=== PATIENT | male | born 1945 | race Caucasian/White ===

== ENCOUNTER → 2023-10-29 07:37 | Outpatient (REF) | payer MEDICARE, OTHER, SELFPAY ==
[2023-10-29 09:36] LABS: Blood Urea Nitrogen 24 mg/dl (9-20); Calcium 9.3 mg/dl (8.4-10.2); Carbon Dioxide 31 mmol/L (22-30); Chloride 101 mmol/L (98-107); Glucose 111 mg/dl (70-99); Potassium 4.4 mmol/L (3.5-5.1); Sodium 137 mmol/L (135-145); eGFR > 60.00
== END ==
LOC: REG 07:37
PROVIDERS: ATTENDING PHYSICIAN Surgery; FAMILY PHYSICIAN Family Medicine
DX: Q60.0 Renal agenesis, unilateral (principal)
CPT/HCPCS: 36415; 80048

== ENCOUNTER → 2023-11-04 16:02 | Outpatient (REF) | payer MEDICARE, OTHER, SELFPAY | LOC: RAD 16:02 | PROVIDERS: ATTENDING PHYSICIAN Surgery | DX: N31.2 Flaccid neuropathic bladder, not elsewhere classified (principal) | CPT/HCPCS: 76770 ==

== ENCOUNTER → 2023-11-06 19:06 | Outpatient (REF) | payer MEDICARE, OTHER, SELFPAY ==
[2023-11-06 20:11] LABS: Urine Albumin Trace (Neg - Trace); Urine Bilirubin Negative (Negative); Urine Character Slightly Cloudy (Clear); Urine Color Yellow; Urine Glucose Negative (Negative); Urine Ketone Negative (Negative); Urine Leukocyte 2+ (Negative); Urine Nitrite Positive (Negative); Urine Occult Blood 1+ (Negative); Urine Specific Gravity 1.015 (<1.030); Urine Urobilinogen Negative (Neg - 1+)
[2023-11-06 20:24] LABS: Urine Bacteria Moderate (Negative); Urine White Cell >100 /HPF (0-5)
[2023-11-06 20:26] LABS: Urine Red Blood Cell 0-2 /HPF (0-2)
== END ==
LOC: CLAB 19:06
PROVIDERS: ATTENDING PHYSICIAN Surgery
DX: N39.0 Urinary tract infection, site not specified (principal)
CPT/HCPCS: 81003; 81015; 87077; 87086; 87186

== ENCOUNTER → 2024-02-16 07:14 | Outpatient (REF) | payer MEDICARE, OTHER, SELFPAY ==
[2024-02-16 08:16] LABS: % Basophils 0.3 % (0-2); % Eosinophils 1.1 % (0-6); % Immature Granulocytes 0.3 % (0-0.5); % Lymphocytes 38.2 % (20.5-51.1); % Neutrophils 50.1 % (42.2-75.2); Absolute Lymphocytes 1.4 10^3/uL (1.2-3.4); Absolute Monocytes 0.4 10^3/uL (0.1-0.6); Absolute Neutrophils 1.8 10^3/uL (1.4-6.5); Hematocrit 39.1 % (39.0-52.0); Hemoglobin 13.1 g/dL (13.0-18.0); Mean Corp Hgb Conc. 33.5 g/dL (33.0-37.0); Mean Corpuscular Hgb 29.8 pg (27.0-31.0); Mean Corpuscular Volume 89.1 fL (80.0-94.0); Mean Platelet Volume 9.2 fL (7.4-10.4); Nucleated Red Blood Cells % 0 % (-); Platelet Count 151 10^3/uL (130-400); Red Blood Cell Count 4.39 10^6/uL (4.70-6.10); Red Cell Dist. Width 13.6 % (11.5-14.5); White Blood Cell Count 3.6 10^3/uL (4.8-10.8)
[2024-02-16 09:09] LABS: ALT (SGPT) 18 U/L (0-50); AST (SGOT) 35 U/L (17-59); Albumin 4.2 g/dl (3.5-5.0); Alkaline Phosphatase 84 U/L (38-126); Blood Urea Nitrogen 21 mg/dl (9-20); Calcium 9.5 mg/dl (8.4-10.2); Carbon Dioxide 29 mmol/L (22-30); Chloride 103 mmol/L (98-107); Glucose 103 mg/dl (70-99); HDL Cholesterol 50 mg/dl; LDL Cholesterol, Calculated 52 mg/dl; Potassium 4.3 mmol/L (3.5-5.1); Sodium 140 mmol/L (135-145); Total Bilirubin 0.9 mg/dl (0.2-1.3); Total Cholesterol 113 mg/dl (50-199); Total Protein 7.1 g/dl (6.3-8.2); Triglyceride 56 mg/dl (10-149); Very Low Density Lipoprotein 11 mg/dl (0-30); eGFR > 60.00
[2024-02-16 09:32] LABS: PSA, Total - Diagnostic 2.84 ng/ml (0.0-4.0); TSH 2.25 uIU/ml (0.47-4.68)
== END ==
LOC: REG 07:14
PROVIDERS: ATTENDING PHYSICIAN Family Medicine
DX: R73.03 Prediabetes (principal); N40.1 Benign prostatic hyperplasia with lower urinary tract symptoms; I10 Essential (primary) hypertension
CPT/HCPCS: 36415; 80053; 80061; 83036; 84153; 84443; 85025

== ENCOUNTER → 2024-07-18 07:38 | Outpatient (REF) | payer MEDICARE, OTHER, SELFPAY | LOC: RAD 07:38 | PROVIDERS: ATTENDING PHYSICIAN Physician Assistant; FAMILY PHYSICIAN Family Medicine | DX: I72.4 Aneurysm of artery of lower extremity (principal) | CPT/HCPCS: 93922; 93925 ==

== ENCOUNTER → 2024-08-23 08:39 | Outpatient (REF) | payer MEDICARE, OTHER, SELFPAY ==
[2024-08-23 09:12] LABS: % Basophils 0.3 % (0-2); % Immature Granulocytes 0.3 % (0-0.5); % Lymphocytes 31.8 % (20.5-51.1); % Monocytes 7.8 % (1.7-9.3); % Neutrophils 58.8 % (42.2-75.2); Absolute Lymphocytes 1.3 10^3/uL (1.2-3.4); Absolute Monocytes 0.3 10^3/uL (0.1-0.6); Absolute Neutrophils 2.3 10^3/uL (1.4-6.5); Hematocrit 42.5 % (39.0-52.0); Hemoglobin 14.2 g/dL (13.0-18.0); Mean Corp Hgb Conc. 33.4 g/dL (33.0-37.0); Mean Corpuscular Hgb 30.5 pg (27.0-31.0); Mean Corpuscular Volume 91.4 fL (80.0-94.0); Mean Platelet Volume 9.4 fL (7.4-10.4); Nucleated Red Blood Cells % 0 % (-); Platelet Count 138 10^3/uL (130-400); Red Blood Cell Count 4.65 10^6/uL (4.70-6.10); Red Cell Dist. Width 12.8 % (11.5-14.5)
[2024-08-23 10:08] LABS: ALT (SGPT) 17 U/L (0-50); AST (SGOT) 29 U/L (17-59); Albumin 4.7 g/dl (3.5-5.0); Alkaline Phosphatase 69 U/L (38-126); Blood Urea Nitrogen 26 mg/dl (9-20); Calcium 9.7 mg/dl (8.4-10.2); Carbon Dioxide 31 mmol/L (22-30); Chloride 100 mmol/L (98-107); Glucose 104 mg/dl (70-99); HDL Cholesterol 65 mg/dl; LDL Cholesterol, Calculated 53 mg/dl; Potassium 4.6 mmol/L (3.5-5.1); Sodium 140 mmol/L (135-145); Total Cholesterol 128 mg/dl (50-199); Total Protein 7.5 g/dl (6.3-8.2); Triglyceride 53 mg/dl (10-149); Very Low Density Lipoprotein 10 mg/dl (0-30); eGFR > 60.00
[2024-08-23 10:21] LABS: Glycohemoglobin (HgbA1c) 5.7 % (4.0-5.6)
[2024-08-23 10:34] LABS: TSH 2.24 uIU/ml (0.47-4.68)
== END ==
LOC: REG 08:39
PROVIDERS: ATTENDING PHYSICIAN Family Medicine
DX: R73.03 Prediabetes (principal); Z79.899 Other long term (current) drug therapy
CPT/HCPCS: 36415; 80053; 80061; 83036; 84443; 85025

== ENCOUNTER → 2024-09-19 09:26 | Outpatient (REF) | payer MEDICARE, OTHER, SELFPAY | LOC: CLAB 09:26 | PROVIDERS: ATTENDING PHYSICIAN Surgery | DX: N39.0 Urinary tract infection, site not specified (principal) | CPT/HCPCS: 87077; 87086; 87186 ==

== ENCOUNTER → 2025-03-03 08:36 | Outpatient (REF) | payer MEDICARE, OTHER, SELFPAY ==
[2025-03-03 09:25] LABS: % Basophils 0.2 % (0-2); % Immature Granulocytes 0.2 % (0-0.5); % Lymphocytes 32.3 % (20.5-51.1); % Monocytes 7.6 % (1.7-9.3); % Neutrophils 58.7 % (42.2-75.2); Absolute Lymphocytes 1.3 10^3/uL (1.2-3.4); Absolute Monocytes 0.3 10^3/uL (0.1-0.6); Absolute Neutrophils 2.4 10^3/uL (1.4-6.5); Hematocrit 41.8 % (39.0-52.0); Hemoglobin 14.1 g/dL (13.0-18.0); Mean Corp Hgb Conc. 33.7 g/dL (33.0-37.0); Mean Corpuscular Hgb 31.1 pg (27.0-31.0); Mean Corpuscular Volume 92.1 fL (80.0-94.0); Mean Platelet Volume 9.5 fL (7.4-10.4); Nucleated Red Blood Cells % 0 % (-); Platelet Count 142 10^3/uL (130-400); Red Blood Cell Count 4.54 10^6/uL (4.70-6.10); Red Cell Dist. Width 12.7 % (11.5-14.5); White Blood Cell Count 4.1 10^3/uL (4.8-10.8)
[2025-03-03 09:55] LABS: Glycohemoglobin (HgbA1c) 5.7 % (4.0-5.6)
[2025-03-03 10:19] LABS: ALT (SGPT) 13 U/L (0-50); Albumin 4.7 g/dl (3.5-5.0); Alkaline Phosphatase 65 U/L (38-126); Blood Urea Nitrogen 25 mg/dl (9-20); Carbon Dioxide 29 mmol/L (22-30); Glucose 98 mg/dl (70-99); HDL Cholesterol 46 mg/dl; LDL Cholesterol, Calculated 58 mg/dl; Potassium 5.1 mmol/L (3.5-5.1); Sodium 141 mmol/L (135-145); Total Bilirubin 1.1 mg/dl (0.2-1.3); Total Cholesterol 113 mg/dl (50-199); Total Protein 7.5 g/dl (6.3-8.2); Triglyceride 49 mg/dl (10-149); Very Low Density Lipoprotein 9 mg/dl (0-30); eGFR > 60.00
[2025-03-03 10:39] LABS: AST (SGOT) 25 U/L (17-59); Chloride 104 mmol/L (98-107)
[2025-03-03 10:48] LABS: PSA, Total - Diagnostic 2.63 ng/ml (0.0-4.0); TSH 1.57 uIU/ml (0.47-4.68)
== END ==
LOC: REG 08:36
PROVIDERS: ATTENDING PHYSICIAN Family Medicine
DX: R73.03 Prediabetes (principal); N40.1 Benign prostatic hyperplasia with lower urinary tract symptoms; Z79.899 Other long term (current) drug therapy
CPT/HCPCS: 36415; 80053; 80061; 83036; 84153; 84443; 85025

== ENCOUNTER → 2025-07-21 07:41 | Outpatient (REF) | payer MEDICARE, OTHER, SELFPAY | LOC: DHVS 07:41 | PROVIDERS: ATTENDING PHYSICIAN Surgery Vascular Surgery; FAMILY PHYSICIAN Family Medicine | DX: I72.4 Aneurysm of artery of lower extremity (principal) | CPT/HCPCS: 93922; 93925; 93978 ==

== ENCOUNTER → 2025-08-07 08:36 | Outpatient (REF) | payer MEDICARE, OTHER, SELFPAY ==
[2025-08-07 10:21] LABS: Hematocrit 42.3 % (39.0-52.0); Hemoglobin 13.7 g/dL (13.0-18.0); Mean Corp Hgb Conc. 32.4 g/dL (33.0-37.0); Mean Corpuscular Volume 93.0 fL (80.0-94.0); Nucleated Red Blood Cells % 0 % (-); Platelet Count 152 10^3/uL (130-400); Red Cell Dist. Width 12.8 % (11.5-14.5)
[2025-08-07 10:45] LABS: Glycohemoglobin (HgbA1c) 5.6 % (4.0-5.9)
[2025-08-07 10:46] LABS: ALT (SGPT) 16 U/L (0-50); AST (SGOT) 27 U/L (17-59); Albumin 4.5 g/dl (3.5-5.0); Alkaline Phosphatase 68 U/L (38-126); Blood Urea Nitrogen 23 mg/dl (9-20); Calcium 9.5 mg/dl (8.4-10.2); Carbon Dioxide 34 mmol/L (22-30); Chloride 101 mmol/L (98-107); Glucose 105 mg/dl (70-99); HDL Cholesterol 54 mg/dl; LDL Cholesterol, Calculated 59 mg/dl; Potassium 4.9 mmol/L (3.5-5.1); Sodium 139 mmol/L (135-145); Total Protein 7.3 g/dl (6.3-8.2); Very Low Density Lipoprotein 12 mg/dl (0-30); eGFR > 60.00
[2025-08-07 11:04] LABS: TSH 1.93 uIU/ml (0.47-4.68)
== END ==
LOC: REG 08:36
PROVIDERS: ATTENDING PHYSICIAN Family Medicine
DX: R73.03 Prediabetes (principal); Z79.899 Other long term (current) drug therapy; I70.90 Unspecified atherosclerosis
CPT/HCPCS: 36415; 80053; 80061; 83036; 84443; 85025